=== PATIENT | male | born 1970 | race Caucasian/White ===

== ENCOUNTER 2016-11-15 11:05 | Day surgery (SDC) | payer OTHER ==
[2016-11-15] MEDS ORDERED: cefTRIAXone(*) 2 GM ADDV.VIAL IVPB ONE (11:18)
[2016-11-15] MEDS ORDERED: Buffered Lidocaine 0.9% SYRIN* 5 ML/SYR SYRINGE ONE (11:18)
[2016-11-15 12:04] LABS: Hematocrit 46 % (42-52); Hemoglobin 15.5 g/dl (14.0-18.0); Mean Corpuscular HGB Conc 34 g/dl (31-36); Mean Corpuscular Hemoglobin 29 pg (27-31); Mean Corpuscular Volume 87 fL (80-94); Mean Platelet Volume 8 um3 (7.4-10.4); Red Blood Count 5.27 10^6/ul (4.0-5.4); Red Cell Distribution Width 13 % (10.5-15); White Blood Count 10.8 10^3/ul (3.5-10.8)
[2016-11-15 13:05] LABS: BUN/Creatinine Ratio 15.6 (8-20); Calcium 9.2 mg/dL (8.6-10.3); EGFR African American 73.2 (>60); EGFR Non-African American 56.9 (>60); Potassium 4.3 mmol/L (3.5-5.0)
[2016-11-15] MEDS ORDERED: Iohexol 180 (CONTRAST) 10 ML SDV IV ONE (14:40)
[2016-11-15] MEDS ORDERED: Midazolam* 1 MG/ML 5 ML VIAL (5 MG) ONE (14:47)
[2016-11-15] MEDS ORDERED: Propofol* 10 MG/ML 20 ML BTL IV PUSH ONE (15:03)
[2016-11-15] MEDS ORDERED: fentaNYL* 50 MCG/ML 2 ML VIAL (100 MCG VIAL) ONE (15:03)
[2016-11-15] MEDS ORDERED: Ondansetron INJ* 2 MG/ML VIAL ONE (15:25)
[2016-11-15] MEDS ORDERED: oxyCODONE TAB* 5 MG TAB PO PRN (15:28)
[2016-11-15] MEDS ORDERED: fentaNYL* 50 MCG/ML 2 ML VIAL (100 MCG VIAL) IV PRN (15:28)
[2016-11-15] MEDS ORDERED: DiMENhydriNATE IV* 50 MG/ML VIAL IV PUSH PRN (15:28)
[2016-11-15] MEDS ORDERED: HYDROcodone/ACETAMIN 5-325 MG* 1 TAB PO PRN (15:28)
[2016-11-15] MEDS ORDERED: HYDROmorphone* 1 MG/ML 1 ML SYR IV PRN (15:28)
[2016-11-15] MEDS ORDERED: Ondansetron INJ* 2 MG/ML VIAL IV PRN (15:28)
--- NOTE | 2016-11-15 16:02 | RAD ---
INDICATION: Left ureteral calculus COMPARISON: [facility] June 13, 2015 FINDINGS: 10 seconds of fluoroscopy were provided for the urology department. Fluoroscopic spot imaging of the abdomen were obtained for operative control and show left ureteral stent placement . CPT II Codes: 6045F (fluoro time doc)
[2016-11-15 16:54] VITALS: BP 117/77
--- NOTE | 2016-11-16 13:59 | OP ---
CC: Dr. Barajas OPERATIVE REPORT: DATE OF OPERATION: 11/15/16 DATE OF : 70 SURGEON: Jac Thomas MD ANESTHESIOLOGIST: Caleb Davis MD ANESTHESIA: General. PRE-OP DIAGNOSIS: Proximal left ureteral calculus (1.2 cm). POST-OP DIAGNOSIS: Proximal left ureteral calculus (1.2 cm). OPERATIVE PROCEDURE: 1. Cystoscopy. 2. Left retrograde pyelography and placement of left ureteral stent (6-[place]er). INDICATION FOR PROCEDURE: Mr. Castañeda is a 46-year-old white male who is a known stone former and who presented to the office today complaining of symptoms of left renal colic. Office renal ultrasound showed moderate left hydronephrosis and a 1- cm calculus was noted in the proximal left ureter. No jets were seen from the left orifice. Because of the above history and findings, the patient was brought in urgently to the operating room for the above procedure. PATHOLOGY: At cystoscopy, the penile urethra looked normal. There was a soft stricture in the bulbar urethra that was bypassed easily with the cystoscope. The prostatic urethra was short and open. Examination of the bladder showed normal mucosa. No suspicious bladder lesions were seen. The ureteral orifices looked normal. At fluoroscopy, a 1.2-cm radiopaque calculus was noted in the proximal left ureter about 4 cm distal to the ureteropelvic junction. The stone was impacted and there was difficulty introducing the open-ended catheter over the guidewire. Retrograde pyelography showed moderate left hydroureteronephrosis to the level of the stone. DESCRIPTION OF PROCEDURE: After successful general anesthesia, the patient was placed in the lithotomy position and was prepped and draped for cystoscopy. Cystoscopy was then performed. The bladder was inspected. The above findings were noted. A flexible tip guidewire was then introduced into the left orifice and was successfully introduced into the renal pelvis. A size 5-[place] open-ended catheter was fed on top of the guidewire; however, it could not be introduced beyond the stone due to its impaction. Retrograde pyelography was then performed. The guidewire was repositioned inside the renal pelvis. A size 6-[place] stent was then placed with the proximal end coiling in renal pelvis and the distal end coiling inside the bladder. There was good drainage of contrast from the kidney and no extravasation. The patient tolerated the procedure well and left the operating room in good condition. The plan is to bring the patient back in for definitive treatment of the stone. [id number]/[facility] #: [id number] MTDAvelina
== END 2016-11-15 16:54 | disposition home or self-care (01) ==
LOC: OR 11:05
PROVIDERS: ATTEND Urology
PROC: BT1FZZZ Fluoroscopy of Left Kidney, Ureter and Bladder (ICD-10-PCS; 2016-11-15)
PROC: 0T778DZ Dilation of Left Ureter with Intraluminal Device, Via Natural or Artificial Opening Endoscopic (ICD-10-PCS; principal; 2016-11-15 13:30)
DX: N13.2 Hydronephrosis with renal and ureteral calculous obstruction (principal); I10 Essential (primary) hypertension
CPT/HCPCS: 36415; 74420; 80048; 85025; 85610; C1876; J0696; J1580; J2250; J2405; J2704; J3010

== ENCOUNTER 2016-11-25 09:21 | Day surgery (SDC) | payer OTHER ==
[~2016-11-25 09:21] MED LIST: Buffered Lidocaine 0.9% SYRIN* 5 ML/SYR SYRINGE INTRADERM ONE; Sodium Citrate/Citric Acid* 15 ML UDC PO ONE
[2016-11-25] MEDS ORDERED: Sodium Citrate/Citric Acid* 15 ML UDC ONE (09:37)
[2016-11-25] MEDS ORDERED: cefTRIAXone(*) 2 GM ADDV.VIAL IVPB ONE (09:37)
[2016-11-25] MEDS ORDERED: Buffered Lidocaine 0.9% SYRIN* 5 ML/SYR SYRINGE ONE (09:37)
--- NOTE | 2016-11-25 09:55 | RAD ---
HISTORY: Shock wave lithotripsy COMPARISONS: June 13, 2015 VIEWS: Frontal views of the abdomen. FINDINGS: BOWEL: There is a nonspecific bowel gas pattern, with nondilated small bowel gas noted. CALCULI: A left ureteral stent is noted. There is a 0.6 cm calculus overlying the expected location of the proximal left ureter. There is a 0.4 cm calculus of the lower pole of the left renal parenchymal shadow. BONES AND SOFT TISSUES: There are no osseous abnormalities. OTHER FINDINGS: The lung bases are clear. There is no subphrenic gas. IMPRESSION: LEFT NEPHROLITHIASIS WITH A LEFT URETERAL STENT
[2016-11-25] MEDS ORDERED: Midazolam* 1 MG/ML 5 ML VIAL (5 MG) ONE (11:07)
[2016-11-25] MEDS ORDERED: fentaNYL* 50 MCG/ML 2 ML VIAL (100 MCG VIAL) ONE ×2 (11:07→11:57)
[2016-11-25] MEDS ORDERED: Furosemide IV* 10 MG/ML 2 ML VIAL (20 MG) ONE (11:28)
[2016-11-25] MEDS ORDERED: Midazolam* 1 MG/ML 2 ML VIAL (2 MG) ONE (11:46)
[2016-11-25] MEDS ORDERED: Lidocaine 2% PF * 5 ML VIAL ONE (11:58)
[2016-11-25] MEDS ORDERED: Propofol* 10 MG/ML 20 ML BTL IV PUSH ONE (11:58)
[2016-11-25 12:46] VITALS: BP 121/98
--- NOTE | 2016-11-26 05:08 | OP ---
CC: Dr. Gilmar Barajas OPERATIVE REPORT: DATE OF OPERATION: 11/25/16 DATE OF : [birth year] AGE/SEX: 46 years/male. SURGEON: Elliot Gonzalez MD ANESTHESIA: Intravenous sedation. ANESTHESIOLOGIST: Dr. Reddy. PRE-OP DIAGNOSIS: Calculus, left proximal ureter. POST-OP DIAGNOSIS: Calculus, left proximal ureter. SURGICAL PROCEDURE: Shock wave lithotripsy of calculus left ureter. COMPLICATIONS: None. POSTOPERATIVE CONDITION: Stable. INDICATIONS: Jose L Castañeda is a 46-year-old gentleman with a history of recurrent renal calculi. H e had undergone urgent left stent insertion for large obstructing calculus in the left proximal uret er. He was given the option of ureteroscopy with laser lithotripsy versus shock wave lithotripsy an d opted for the latter and is now being brought in for shock wave lithotripsy. DESCRIPTION OF PROCEDURE: After induction of intravenous sedation the patient was placed on the lit hotripsy table in supine position. The calculus which was in the proximal ureter adjacent to the st ent was localized using fluoroscopic imaging. Shock wave lithotripsy was commenced at a rate of 90 s hocks per minute. Periodic imaging confirmed good localization and a total of 2800 shocks were admi nistered. The patient tolerated the procedure satisfactorily and was transferred back to the [facility] area in stable condition. The plan is to leave the stent in for a week or so and then to do stent removal in the office followed by imaging to make sure that the fragments do not obstruct. [id number]/[facility] #: [id number]
== END 2016-11-25 12:56 | disposition home or self-care (01) ==
LOC: OR 09:21
PROVIDERS: ATTEND Urology
DX: N13.2 Hydronephrosis with renal and ureteral calculous obstruction (principal)
CPT/HCPCS: 74000; A9270-GY; J0696; J1940; J2250; J2704; J3010